=== PATIENT | female | born 1975 | race Hispanic/Latino ===

== ENCOUNTER 2016-10-01 09:02 | Emergency (ER) | payer OTHER ==
[~2016-10-01] VITALS: Ht 152.4 cm; Wt 64.4 kg
[2016-10-01 10:57] LABS: HEMATOCRIT 35.2 % (36.0-46.0); MCH 30.9 PG (29.0-34.0); MCV 93.6 FL (83-99); MEAN PLAT.VOLUME 9.7 uM^3 (9.5-12.4); PLATELET COUNT 344 K/uL (156-360); RBC DIS.WIDTH-SD 41.7 % (39-53); RED BLOOD COUNT 3.76 M/uL (3.80-5.20); WHITE BLOOD COUNT 8.7 K/uL (4.1-10.2)
[2016-10-01 11:10] LABS: CHLORIDE 106 mEq/L (99-109); POTASSIUM 3.3 mEq/L (3.7-5.4); SODIUM 138 mEq/L (136-147)
[2016-10-01 11:12] LABS: GLUCOSE 111 mg/dL (70-99)
[2016-10-01 11:13] LABS: ANION GAP 10 MEQ/L (2-14)
[2016-10-01 11:14] LABS: TOTAL BILIRUBIN 0.5 mg/dL (0.0-1.0)
[2016-10-01 11:15] LABS: ALKALINE PHOSPHATASE 93 IU/L (3-129)
[2016-10-01 11:16] LABS: GFR ESTIMATE (CALCULATED) > 59 mL/min/
[2016-10-01 11:17] LABS: UREA NITROGEN (BUN) 12 mg/dL (9-23)
[2016-10-01 11:19] LABS: LIPASE 20 U/L (1.0-51.0)
[2016-10-01 11:25] LABS: QUANTITATIVE HCG < 4.0 MIU/ML
[2016-10-01] MEDS ORDERED: BENTYL10 MG PO (12:55)
[2016-10-01] MEDS ORDERED: ZOFRAN ODT4 MG PO (12:55)
[2016-10-01 12:56] LABS: ADD MIUA? YES; BILIRUBIN NEGATIVE; BLOOD MODERATE; COLOR YELLOW ((YELLOW)); GLUCOSE (STRIP) NEGATIVE; KETONES 5; LEUKOCYTES NEGATIVE; NITRITE NEGATIVE; PROTEIN (STRIP) NEGATIVE; SPECIFIC GRAVITY 1.023 (1.000-1.030); UROBILINOGEN 0.2 MG/DL (0.2-1.0)
[2016-10-01 13:13] LABS: BACTERIA NONE SEEN /HPF; CALCIUM OXALATE CRYSTALS 3+ /HPF; EPITHELIAL CELLS 1+ /HPF; MUCUS NONE SEEN /LPF; RED BLOOD CELLS 20-30 /HPF (0-5); UCUL ADDED? NO; WHITE BLOOD CELLS NONE SEEN /HPF (0-5)
[2016-10-01 13:46] VITALS: BP 120/77
== END 2016-10-01 13:47 | disposition home or self-care (01) ==
LOC: EME 09:02 → EXP 09:02
PROVIDERS: Nurse Practitioner Family
DX: R10.9 Unspecified abdominal pain (principal); R11.2 Nausea with vomiting, unspecified; R19.7 Diarrhea, unspecified; R07.2 Precordial pain; F32.9 Major depressive disorder, single episode, unspecified; I25.2 Old myocardial infarction; K21.9 Gastro-esophageal reflux disease without esophagitis; F41.9 Anxiety disorder, unspecified
CPT/HCPCS: 71020; 80053; 81003; 83690; 84702; 85027; 93005; 99281; 99285; J2405; J7030